=== PATIENT | male | born 1990 | race Two or more races ===

== ENCOUNTER 2018-12-29 12:21 | Inpatient (IN) | payer MEDICAID ==
[~2018-12-29] VITALS: Ht 182.9 cm; Wt 97.1 kg
[2018-12-29] VITALS (11 sets, daily range): BP systolic 118–153; BP diastolic 69–82
[2018-12-29] MEDS ORDERED: NKM (12:44)
[2018-12-29] MEDS ORDERED: Pantoprazole Inj IV ONE (13:00)
[2018-12-29] MEDS ORDERED: Lidocaine 2% Visc 15ml soln ORAL ONE (13:00)
[2018-12-29] MEDS ORDERED: Mylanta II UD 30ml ORAL ONE (13:00)
[2018-12-29 13:20] LABS: APPEARANCE,URINE CLEAR; BILIRUBIN, URINE NEGATIVE (NEGATIVE); GLUCOSE, URINE (UA) NEGATIVE (NEGATIVE); KETONES,URINE 1+ (NEGATIVE); LEUKOCYTE ESTERASE ,URINE 1+ (NEGATIVE); NITRITE,URINE NEGATIVE (NEGATIVE); PH,URINE 5 (4.5-8.0); PROTEIN,URINE 1+ (NEGATIVE); UROBILINOGEN,URINE 1 MG/DL (0.0-1.0)
[2018-12-29 13:23] LABS: COLOR,URINE YELLOW
[2018-12-29 13:25] LABS: BASOPHILS % (AUTO) 1.3 % (0.0-2.0); EOSINOPHILS % (AUTO) 3.9 % (0.0-3.0); HEMATOCRIT 48.8 % (42.0-52.0); HEMOGLOBIN 16.1 G/DL (14.2-18.0); LYMPHOCYTES % (AUTO) 29.6 % (20.0-45.0); MEAN CORPUSCULAR VOLUME 88 FL (80-99); MONOCYTES % (AUTO) 5.3 % (1.0-10.0); NEUTROPHILS % (AUTO) 59.9 % (45.0-75.0); PLATELET COUNT 288 K/UL (150-450); RED BLOOD COUNT 5.55 M/UL (4.70-6.10); RED CELL DISTRIBUTION WIDTH 11.3 % (11.6-14.8); WHITE BLOOD COUNT 9.8 K/UL (4.8-10.8)
[2018-12-29 13:51] LABS: ANION GAP 9 mmol/L (5-15); BLOOD UREA NITROGEN 22 mg/dL (7-18); CALCIUM 9.9 MG/DL (8.5-10.1); CARBON DIOXIDE 29 MMOL/L (21-32); CHLORIDE 101 MMOL/L (98-107); CREATININE 1.2 MG/DL (0.55-1.30); SODIUM 139 MMOL/L (136-145)
[2018-12-29 13:57] LABS: ALANINE AMINOTRANSFERASE 34 U/L (12-78); ALBUMIN 4.3 G/DL (3.4-5.0); ALBUMIN/GLOBULIN RATIO 0.9 (1.0-2.7); ALKALINE PHOSPHATASE 121 U/L (46-116); ASPARTATE AMINO TRANSFERASE 16 U/L (15-37); BILIRUBIN,TOTAL 0.7 MG/DL (0.2-1.0)
--- NOTE | 2018-12-29 14:31 | Emergency Room Report ---
History of Present Illness General Chief Complaint: Gastrointestinal Bleed Source: Patient (Rachna Good DO) Present Illness HPI The patient states he has had 2 bouts of abdominal pain and diarrhea. He states several weeks ago he developed a diffuse crampy abdominal pain with diarrhea. He states that this resolved. However, a few days ago symptoms returned. He states he's had pain in his mid abdomen and diarrhea. He denies nausea or vomiting. He denies fever or chills. He has not had any travel or camping. He states that he did note that his stool was black. He admits he took Pepto-Bismol the previous 2 days. He denies dysuria or hematuria. He has no other complaints. (Rachna Good DO) Allergies: Coded Allergies: No Known Allergies (Unverified , 12/29/18) Patient History Past Medical History: none (Rachna Good DO) Nursing Documentation-[facility] Past Medical History: No Stated History (Rachna Good DO) Physical Exam Vital Signs Date Time Temp Pulse Resp B/P (MAP) Pulse Ox O2 Delivery O2 Flow Rate FiO2 12/29/18 12:40 99.0 71 16 131/85 97 Room Air 12/29/18 13:13 100 (Rachna Good DO) Medical Decision Making Diagnostic Impression: Primary Impression: Acute appendicitis Laboratory Tests Test 12/29/18 13:05 12/29/18 13:10 White Blood Count 9.8 K/UL (4.8-10.8) Red Blood Count 5.55 M/UL (4.70-6.10) Hemoglobin 16.1 G/DL (14.2-18.0) Hematocrit 48.8 % (42.0-52.0) Mean Corpuscular Volume 88 FL (80-99) Mean Corpuscular Hemoglobin 29.0 PG (27.0-31.0) Mean Corpuscular Hemoglobin Concent 33.0 G/DL (32.0-36.0) Red Cell Distribution Width 11.3 % (11.6-14.8) L Platelet Count 288 K/UL (150-450) Mean Platelet Volume 9.2 FL (6.5-10.1) Neutrophils (%) (Auto) 59.9 % (45.0-75.0) Lymphocytes (%) (Auto) 29.6 % (20.0-45.0) Monocytes (%) (Auto) 5.3 % (1.0-10.0) Eosinophils (%) (Auto) 3.9 % (0.0-3.0) H Basophils (%) (Auto) 1.3 % (0.0-2.0) Prothrombin Time 10.8 SEC (9.30-11.50) Prothrombin Time INR 1.0 (0.9-1.1) PTT 31 SEC (23-33) Sodium Level 139 MMOL/L (136-145) Potassium Level 4.0 MMOL/L (3.5-5.1) Chloride Level 101 MMOL/L (98-107) Carbon Dioxide Level 29 MMOL/L (21-32) Anion Gap 9 mmol/L (5-15) Blood Urea Nitrogen 22 mg/dL (7-18) H Creatinine 1.2 MG/DL (0.55-1.30) Estimate Glomerular Filtration Rate > 60 mL/min (>60) Glucose Level 108 MG/DL (74-106) H Calcium Level 9.9 MG/DL (8.5-10.1) Total Bilirubin 0.7 MG/DL (0.2-1.0) Aspartate Amino Transferase (AST) 16 U/L (15-37) Alanine Aminotransferase (ALT) 34 U/L (12-78) Alkaline Phosphatase 121 U/L (46-116) H Total Protein 8.9 G/DL (6.4-8.2) H Albumin 4.3 G/DL (3.4-5.0) Globulin 4.6 g/dL Albumin/Globulin Ratio 0.9 (1.0-2.7) L Lipase 110 U/L (73-393) Urine Color Yellow Urine Appearance Clear Urine pH 5 (4.5-8.0) Urine Specific [place] 1.025 (1.005-1.035) Urine Protein 1+ (NEGATIVE) H Urine Glucose (UA) Negative (NEGATIVE) Urine Ketones 1+ (NEGATIVE) H Urine Blood 1+ (NEGATIVE) H Urine Nitrite Negative (NEGATIVE) Urine Bilirubin Negative (NEGATIVE) Urine Urobilinogen 1 MG/DL (0.0-1.0) H Urine Leukocyte Esterase 1+ (NEGATIVE) H Urine RBC 2-4 /HPF (0 - 0) H Urine WBC 2-4 /HPF (0 - 0) Urine Squamous Epithelial Cells Occasional /LPF Urine Bacteria Occasional /HPF (NONE) Urine Opiates Screen Negative (NEGATIVE) Urine Barbiturates Screen Negative (NEGATIVE) Phencyclidine (PCP) Screen Negative (NEGATIVE) Urine Amphetamines Screen Negative (NEGATIVE) Urine Benzodiazepines Screen Negative (NEGATIVE) Urine Cocaine Screen Negative (NEGATIVE) Urine Marijuana (THC) Screen Positive (NEGATIVE) H (Rachna Good DO) ER Course Please refer to the initial note including the presentation and history Patient is a fairly complex patient with multiple differential to consideration including but not limited to cardiac cardiopulmonary and vascular emergencies CT imaging was obtained and at this time speaking to radiology They find findings concerning and consistent with early appendicitis Patient Nothing by mouth requires further inpatient care Gen. surgery being contacted Labs Test 12/29/18 13:05 12/29/18 13:10 White Blood Count 9.8 K/UL (4.8-10.8) Red Blood Count 5.55 M/UL (4.70-6.10) Hemoglobin 16.1 G/DL (14.2-18.0) Hematocrit 48.8 % (42.0-52.0) Mean Corpuscular Volume 88 FL (80-99) Mean Corpuscular Hemoglobin 29.0 PG (27.0-31.0) Mean Corpuscular Hemoglobin Concent 33.0 G/DL (32.0-36.0) Red Cell Distribution Width 11.3 % (11.6-14.8) Platelet Count 288 K/UL (150-450) Mean Platelet Volume 9.2 FL (6.5-10.1) Neutrophils (%) (Auto) 59.9 % (45.0-75.0) Lymphocytes (%) (Auto) 29.6 % (20.0-45.0) Monocytes (%) (Auto) 5.3 % (1.0-10.0) Eosinophils (%) (Auto) 3.9 % (0.0-3.0) Basophils (%) (Auto) 1.3 % (0.0-2.0) Prothrombin Time 10.8 SEC (9.30-11.50) Prothromb Time International Ratio 1.0 (0.9-1.1) Activated Partial Thromboplast Time 31 SEC (23-33) Sodium Level 139 MMOL/L (136-145) Potassium Level 4.0 MMOL/L (3.5-5.1) Chloride Level 101 MMOL/L (98-107) Carbon Dioxide Level 29 MMOL/L (21-32) Anion Gap 9 mmol/L (5-15) Blood Urea Nitrogen 22 mg/dL (7-18) Creatinine 1.2 MG/DL (0.55-1.30) Estimat Glomerular Filtration Rate > 60 mL/min (>60) Glucose Level 108 MG/DL (74-106) Calcium Level 9.9 MG/DL (8.5-10.1) Total Bilirubin 0.7 MG/DL (0.2-1.0) Aspartate Amino Transf (AST/SGOT) 16 U/L (15-37) Alanine Aminotransferase (ALT/SGPT) 34 U/L (12-78) Alkaline Phosphatase 121 U/L (46-116) Total Protein 8.9 G/DL (6.4-8.2) Albumin 4.3 G/DL (3.4-5.0) Globulin 4.6 g/dL Albumin/Globulin Ratio 0.9 (1.0-2.7) Lipase 110 U/L (73-393) Urine Color Yellow Urine Appearance Clear Urine pH 5 (4.5-8.0) Urine Specific [place] 1.025 (1.005-1.035) Urine Protein 1+ (NEGATIVE) Urine Glucose (UA) Negative (NEGATIVE) Urine Ketones 1+ (NEGATIVE) Urine Blood 1+ (NEGATIVE) Urine Nitrite Negative (NEGATIVE) Urine Bilirubin Negative (NEGATIVE) Urine Urobilinogen 1 MG/DL (0.0-1.0) Urine Leukocyte Esterase 1+ (NEGATIVE) Urine RBC 2-4 /HPF (0 - 0) Urine WBC 2-4 /HPF (0 - 0) Urine Squamous Epithelial Cells Occasional /LPF Urine Bacteria Occasional /HPF (NONE) Urine Opiates Screen Negative (NEGATIVE) Urine Barbiturates Screen Negative (NEGATIVE) Phencyclidine (PCP) Screen Negative (NEGATIVE) Urine Amphetamines Screen Negative (NEGATIVE) Urine Benzodiazepines Screen Negative (NEGATIVE) Urine Cocaine Screen Negative (NEGATIVE) Urine Marijuana (THC) Screen Positive (NEGATIVE) (Bhupinder Villafana DO) CT/MRI/US Diagnostic Results CT/MRI/US Diagnostic Results : Imaging Test Ordered: CT abd/pelvis (Rachna Good DO) CT/MRI/US Diagnostic Results : Impression CT abdomen pelvisImpression: Findings are compatible with early uncomplicated acute appendicitis. Colonic diverticulosis Cholelithiasis (Bhupinder Villafana DO) Last Vital Signs Date Time Temp Pulse Resp B/P (MAP) Pulse Ox O2 Delivery O2 Flow Rate FiO2 12/29/18 13:13 98.7 70 21 136/76 100 Room Air 12/29/18 13:13 100 (Rachna Good [place] CHRISTINE) Status: unchanged (Bhupinder Villafana DO) Disposition: ADMITTED INPATIENT Condition: Serious Scripts Tramadol Hcl* (ULTRAM*) 50 Mg Tablet 50 MG ORAL Q6H PRN for For Pain, #20 TAB 0 [facility] Metronidazole* (FLAGYL*) 500 Mg Tablet 500 MG ORAL THREE TIMES A DAY, #21 TAB 0 Refills Prov: [facility] 12/29/18 Ciprofloxacin Hcl* (CIPROFLOXACIN HCL*) 500 Mg Tablet 500 MG ORAL Q12H, #14 TAB 0 [facility] 12/29[facility]18 Referrals: [facility],REFERRING (PCP) Rachna Good [place] Dec 29, 2018 14:31 Bhupinder Villafana DO Dec 29, 2018 16:58
[2018-12-29] MEDS ORDERED: Isovue-300 100ml vial INJ PRN (14:45)
[2018-12-29] MEDS ORDERED: TRAMADOL HCL50 MG ORAL (15:19)
[2018-12-29] MEDS ORDERED: CIPROFLOXACIN500 M2 ORAL (15:19)
[2018-12-29] MEDS ORDERED: METRONIDAZOLE500 MG ORAL (15:19)
--- NOTE | 2018-12-29 16:23 | Diagnostic Imaging Report ---
Clinical Indication: Abdominal pain for one week Technique: No oral contrast utilized, per emergency room physician request IV administration nonionic contrast. Venous phase spiral acquisition obtained through the abdomen and pelvis. Multiplanar reconstructions were generated. Total dose length product 907.29 mGycm. CTDIvol(s) 17.25 mGy. Dose reduction achieved using automated exposure control Comparison: none Findings: There is fairly extensive sigmoid diverticulosis. No definite evidence of diverticulitis. The appendix appears thickened, measuring up to 10 mm thick, and there is very slight infiltration of the periappendiceal fat. No extraluminal gas or fluid is demonstrated. Prominent pericecal nodes are demonstrated. No small bowel distention. No free or loculated intraperitoneal gas or fluid is evident. The distal esophagus, stomach, duodenum are unremarkable. The gallbladder contains small gallstones. No biliary ductal dilatation. The liver, pancreas, spleen, adrenals, kidneys are all unremarkable. No retroperitoneal or mesenteric mass or adenopathy. No pelvic mass or adenopathy. The included lung bases demonstrate posterior dependent atelectatic changes. The bones are unremarkable. Impression: Findings are compatible with early uncomplicated acute appendicitis. Colonic diverticulosis Cholelithiasis Findings discussed by phone with Dr. Villafana or in the emergency room at the time of interpretation The CT scanner at [facility] is accredited by the [employer] and the scans are performed using protocols designed to limit radiation exposure to as low as reasonably achievable to attain images of sufficient resolution adequate for diagnostic evaluation.
[2018-12-29] MEDS ORDERED: UNOBMED (17:23)
--- NOTE | 2018-12-29 18:42 | Pre-Procedure Note/Attestation ---
Pre-Procedure Note/Attestation Complete Prior to Procedure Planned Procedure: not applicable Procedure Narrative: Laparoscopic Appendectomy possible open appendectomy Indications for Procedure Pre-Operative Diagnosis: Acute appendicitis Attestation I attest that I discussed the nature of the procedure; its benefits; risks and complications; and alternatives (and the risks and benefits of such alternatives ), prior to the procedure, with the patient (or the patient's legal sales representative advertising). I attest that, if there was a reasonable possibility of needing a blood transfusion, the patient (or the patient's legal sales representative advertising) was given the [facility] standardized written summary, pursuant to the Flavio Jc Blood Safety Act ([place] Health and Safety Code # 1645, as amended). I attest that I re-evaluated the patient just prior to the surgery and that there has been no change in the patient's H&P, except as documented below: Caitlin Russell MD Dec 29, 2018 18:42
[2018-12-29] MEDS ORDERED: NS Irrig 1000ml ONE (19:00)
[2018-12-29] MEDS ORDERED: Sterile Water Irrig 1000ml IRRIG ONE (19:00)
[2018-12-29] MEDS ORDERED: LR 1000ml ONE (19:00)
[2018-12-29] MEDS ORDERED: NeoSporin Gu Irrig 1ml Amp IRRIG ONE (19:09)
[2018-12-29] MEDS ORDERED: Bacitracin 50000 Units Vial ONE (19:09)
[2018-12-29] MEDS ORDERED: Bupivacaine 0.25% Inj 30ml INJ ONE (19:09)
[2018-12-29] MEDS ORDERED: fentaNYL 100 mcg/2 mL IV ONE (19:14)
[2018-12-29] MEDS ORDERED: Lidocaine 1% MPF 10mg/ml 5ml ONE (19:15)
[2018-12-29] MEDS ORDERED: Midazolam 2mg/2ml Inj ONE (19:15)
[2018-12-29] MEDS ORDERED: Propofol 200mg/20ml IV ONE (19:15)
[2018-12-29] MEDS ORDERED: Succinylcholine 20mg/ml 10ml vial ONE (19:21)
[2018-12-29] MEDS ORDERED: Zemuron 50mg/5ml Inj IV ONE (19:21)
[2018-12-29] MEDS ORDERED: Piperacillin/Tazobactam 3.375 GM in NS 110 ML IVPB SCH (19:30)
--- NOTE | 2018-12-29 20:00 | Consultation ---
DATE OF CONSULTATION: 12/29/2018 PREOPERATIVE CONSULTATION CONSULTING PHYSICIAN: Caitlin Russell M.D. REQUESTING PHYSICIAN: Dr. Villafana at emergency room. REASON FOR CONSULTATION: Abdominal pain. HISTORY OF PRESENT ILLNESS: This is a 28-year-old male, who presented to emergency room complaining of low abdominal pain since earlier today morning. The pain initially was periumbilical and lower abdomen and then it has localized mainly in the suprapubic, maybe more towards the right side. He stated that he has vomited once and had a normal bowel movement today. He denies fever, cough, dysuria, or frequency. He stated that a week ago, had a similar episode which lasted for 2 to 3 days and then it resolved. PAST MEDICAL HISTORY: He denies allergies, asthma, diabetes, hypertension, and cardiac and renal diseases. SURGERIES: None. MEDICATIONS: None. SOCIAL HISTORY: The patient is a 28-year-old male, who is single without any children. 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 REVIEW OF SYSTEMS: Noncontributory. PHYSICAL EXAMINATION: GENERAL: The patient appeared to be a well-developed and well-nourished 28-year-old male, lying on the bed, complaining of abdominal pain. HEENT: Head is normocephalic and atraumatic. Eyes, pupils are equal, round, and reactive to light. Mouth is clear. NECK: There is no palpable thyromegaly or adenopathy. CHEST: Clear to auscultation and percussion. HEART: There is no gallop or murmur. S1 and S2 are within normal limits. ABDOMEN: Soft and flat with mild tenderness at right lower quadrant. The bowel sounds are present. There is no palpable organomegaly. GENITAL: Normal. EXTREMITIES: Within normal limits. LABORATORY DATA: CBC has shown a WBC of 9800 with normal differential. Chemistry and UA is normal, but the CAT scan of the abdomen has been interpreted as early acute appendicitis. ASSESSMENT: Acute appendicitis. PLAN: After rehydration, the patient will undergo exploratory laparoscopy and appendectomy, possible open appendectomy. The risks and benefits have been explained to him. He understood and granted consent. Caitlin Russell M.D. DR: LAZARO JOB#: [id number] CC:
[2018-12-29] MEDS ORDERED: NS Irrig 1000ml IRRIG ONE (20:06)
[2018-12-29] MEDS ORDERED: LR 1000ml 1,000 ML IVLG SCH (20:07)
--- NOTE | 2018-12-29 20:07 | Anethesia Preoperative Eval ---
Anesthesia Pre-op PMH/ROS General Date of Evaluation: Dec 29, 2018 Time of Evaluation: 19:10 Anesthesiologist: Bar ASA Score: ASA 2 Mallampati Score Class I : Soft palate, uvula, fauces, pillars visible Class II: Soft palate, uvula, fauces visible Class III: Soft palate, base of uvula visible Class IV: Only hard plate visible Mallampati Classification: Class II Surgeon: Yvonne Diagnosis: Acute appendicitis Surgical Procedure: Laparoscopic appendefctomy Anesthesia History: none Family History: no anesthesia problems Allergies: Coded Allergies: No Known Allergies (Unverified , 12/29/18) Medications: see eMAR Patient NPO?: Yes NPO Date: Dec 29, 2018 NPO Time: 1819 Past Medical History Cardiovascular: Denies: HTN, CAD, [place], valve dz, arrhythmia, other Pulmonary: Denies: asthma, COPD, DIPTI, other Gastrointestinal/Genitourinary: Reports: GERD - mild; Denies: CRI, ESRD, other Neurologic/Psychiatric: Denies: dementia, CVA, depression/anxiety, TIA, other Endocrine: Denies: DM, hypothyroidism, steroids, other HEENT: Denies: cataract (L), cataract (R), glaucoma, [place] (L), [place] (R), other Hematology/Immune: Denies: anemia, DVT, bleeding disorder, other Musculoskeletal/Integumentary: Denies: OA, RA, DJD, DDD, edema, other Other: other - overweight PMH Narrative: as above admitted for acute abdominal pain PSxH Narrative: None Anesthesia Pre-op Phys. Exam Physician Exam Last Vital Signs Date Time Temp Pulse Resp B/P (MAP) Pulse Ox O2 Delivery O2 Flow Rate FiO2 12/29/18 19:05 Room Air 12/29/18 18:20 97.7 63 20 151/79 (103) 96 12/29/18 18:11 100 Constitutional: NAD Neurologic: CN 2-12 intact Cardiovascular: RRR, no M/R/G Respiratory: CTA Gastrointestinal: other - tender on palpation Airway Exam Mallampati Score: Class II MO: full Neck: flexible ROM: full Teeth: intact Dentures: no upper, no lower Anesthesia Pre-op A/P Labs Hematology Test 12/29/18 13:05 White Blood Count 9.8 K/UL (4.8-10.8) Red Blood Count 5.55 M/UL (4.70-6.10) Hemoglobin 16.1 G/DL (14.2-18.0) Hematocrit 48.8 % (42.0-52.0) Mean Corpuscular Volume 88 FL (80-99) Mean Corpuscular Hemoglobin 29.0 PG (27.0-31.0) Mean Corpuscular Hemoglobin Concent 33.0 G/DL (32.0-36.0) Red Cell Distribution Width 11.3 % (11.6-14.8) L Platelet Count 288 K/UL (150-450) Mean Platelet Volume 9.2 FL (6.5-10.1) Neutrophils (%) (Auto) 59.9 % (45.0-75.0) Lymphocytes (%) (Auto) 29.6 % (20.0-45.0) Monocytes (%) (Auto) 5.3 % (1.0-10.0) Eosinophils (%) (Auto) 3.9 % (0.0-3.0) H Basophils (%) (Auto) 1.3 % (0.0-2.0) Coagulation Test 12/29/18 13:05 Prothrombin Time 10.8 SEC (9.30-11.50) Prothromb Time International Ratio 1.0 (0.9-1.1) Activated Partial Thromboplast Time 31 SEC (23-33) Chemistry Test 12/29/18 13:05 Sodium Level 139 MMOL/L (136-145) Potassium Level 4.0 MMOL/L (3.5-5.1) Chloride Level 101 MMOL/L (98-107) Carbon Dioxide Level 29 MMOL/L (21-32) Anion Gap 9 mmol/L (5-15) Blood Urea Nitrogen 22 mg/dL (7-18) H Creatinine 1.2 MG/DL (0.55-1.30) Estimat Glomerular Filtration Rate > 60 mL/min (>60) Glucose Level 108 MG/DL (74-106) H Calcium Level 9.9 MG/DL (8.5-10.1) Total Bilirubin 0.7 MG/DL (0.2-1.0) Aspartate Amino Transf (AST/SGOT) 16 U/L (15-37) Alanine Aminotransferase (ALT/SGPT) 34 U/L (12-78) Alkaline Phosphatase 121 U/L (46-116) H Total Protein 8.9 G/DL (6.4-8.2) H Albumin 4.3 G/DL (3.4-5.0) Globulin 4.6 g/dL Albumin/Globulin Ratio 0.9 (1.0-2.7) L Lipase 110 U/L (73-393) Risk Assessment & Plan Assessment: ASA 2E Plan: GA with ETT Status Change Before Surgery: No Pre-Antibiotics Drug: Zosin 3.375 Given Within 1 Hr of Incision: Yes Time Given: 20:10 Rafa Dinero MD Dec 29, 2018 20:06
[2018-12-29] MEDS ORDERED: Meperidine 50mg/ml Inj(FOR RIGORS ONLY) IV PRN (20:15)
[2018-12-29] MEDS ORDERED: DiphenhydrAMINE 50mg/ml Inj IVP PRN (20:15)
[2018-12-29] MEDS ORDERED: Ketorolac 30mg Inj IV PRN (20:15)
[2018-12-29] MEDS ORDERED: Metoclopramide 10mg/2ml Inj IVP PRN ×2 (20:15→20:30)
[2018-12-29] MEDS ORDERED: Glycopyrrolate 0.2mg/ml 1ml Vial ONE (20:18)
[2018-12-29] MEDS ORDERED: Hydromorphone 0.5mg/0.5ml inj IVP PRN (20:30)
[2018-12-29] MEDS ORDERED: Acetaminophen 650 MG SUPP RECTAL PRN (20:30)
--- NOTE | 2018-12-29 20:30 | Brief Operative Note ---
Immediate Post Operative Note Operative Note Pre-op Diagnosis: Acute appendicitis Post-op Diagnosis: same as pre-op Findings: consistent w/pre-op dx studies Surgeon: Luis A Utilities Service Investigator: none Anesthesiologist: Dr. Dinero Anesthesia: general Specimen: yes Complications: none Condition: stable Fluids: per anesthesiologist Estimated Blood Loss: minimal Drains: none Implant(s) used?: No Caitlin Russell MD Dec 29, 2018 20:30
--- NOTE | 2018-12-29 20:47 | Immediate Post-Op Evaluation ---
Immediate Post-Op Evalulation Immediate Post-Op Evalulation Procedure: Laparoscopic appendectomy Date of Evaluation: Dec 29, 2018 Time of Evaluation: 20:46 IV Fluids: 600 Blood Products: none Estimated Blood Loss: min Urinary Output: none Blood Pressure Systolic: 123 Blood Pressure Diastolic: 76 Pulse Rate: 64 Respiratory Rate: 20 O2 Sat by Pulse Oximetry: 98 Temperature (Fahrenheit): 97.6 Pain Score (1-10): 1 Nausea: No Vomiting: No Complications none Patient Status: reacts, patent, extubated, none Hydration Status: adequate Rafa Dinero MD Dec 29, 2018 20:47
[2018-12-29] MEDS: D5 1/2NS w/KCl 20mEq 1,000 ML IV SCH (22:14)
--- NOTE | 2018-12-29 22:30 | Operative Note - Dictated ---
DATE OF OPERATION: 12/29/2018 PREOPERATIVE DIAGNOSIS: Acute appendicitis. POSTOPERATIVE DIAGNOSIS: Acute appendicitis. OPERATION: Laparoscopic appendectomy. COMPLICATIONS: None. SURGEON: Caitlin Russell M.D. MILK AND CREAM GRADER: None. ANESTHESIA: General with endotracheal tube. ANESTHESIOLOGIST: Rafa Dinero M.D. INDICATION: This is a 28-year-old male, who presented to emergency room complaining of abdominal pain since yesterday morning. The pain was initially in the lower abdomen and then it localized at the suprapubic area. It was associated with nausea and vomiting. Physical examination showed mild tenderness at right lower quadrant. CBC, UA, and chemistry was normal. CAT scan of the abdomen was interpreted as early acute appendicitis. DESCRIPTION OF PROCEDURE: The patient was placed supine on the operating table and after general anesthesia with endotracheal tube, the abdomen was properly prepped and draped. Initially, a small incision was made above the umbilicus through which a Veress needle was introduced into the intraperitoneal cavity. This cavity was insufflated up to 15 mmHg and then the Veress needle was removed and a 5 mm trocar was placed in the intraperitoneal cavity through the incision above the umbilicus. The laparoscope and camera was introduced into the intraperitoneal cavity through the trocar above the umbilicus and under direct vision, a 5 mm trocar was placed at the suprapubic area and a 12 mm trocar was placed at the left lower quadrant of the abdomen. Initially, a rapid exploration was performed, which showed the diaphragms to be normal. The part of the stomach that could be seen was normal. The liver was normal. Gallbladder was covered with omentum and the bowels were covered with fatty omentum. Exploration of the right lower quadrant cavity was performed. The cecum was identified and further exploration was performed and finally the appendix was identified, which was severely inflamed and distended especially at the distal half. The appendix was retroperitoneal. Gradually the appendix was dissected and mesoappendix was exposed. The mesoappendix was ligated and transected with a SRINI stapler and then the appendix was ligated and transected at the base with another SRINI stapler. The appendix was removed from the intraperitoneal cavity through the incision at the left lower quadrant of the abdomen with the help of the Endo pouch. After removal of the appendix, the right lower quadrant cavity and pelvis and right paracolic gutter was copiously irrigated with antibiotic solution. Another exploration was performed. There was no bleeding or complication. The trocars were removed under direct vision. The incisions were infiltrated with total of 30 mL of Marcaine 0.25% and the incision and the fascia at the left lower quadrant was approximated with a [id number] suture of #0 Vicryl. The subcutaneous tissue was approximated with 4-0 chromic and the skin incisions were approximated with running subcuticular suture of 4-0 chromic. The patient tolerated the procedure very well and was transferred to recovery room in stable condition and extubated. The sponge and needle count correct. Estimated blood loss 5 mL. Condition of the patient at the end of procedure is stable. Caitlin Russell M.D. DR: Jorge JOB#: [id number] CC:
[2018-12-29] MEDS: Pantoprazole Inj IVP SCH (22:37)
[2018-12-30] VITALS (8 sets, daily range): BP systolic 106–130; BP diastolic 60–77
[2018-12-30] MEDS: HYDROmorphone 1mg/ml Carpuject IVP PRN ×2 (00:24→06:01)
[2018-12-30] MEDS: Piperacillin/Tazobactam 3.375 GM in NS 110 ML IVPB SCH ×3 (06:01→21:48)
[2018-12-30 06:20] LABS: BASOPHILS % (AUTO) 0.8 % (0.0-2.0); EOSINOPHILS % (AUTO) 1.4 % (0.0-3.0); HEMATOCRIT 40.6 % (42.0-52.0); HEMOGLOBIN 13.5 G/DL (14.2-18.0); MEAN CORPUSCULAR VOLUME 89 FL (80-99); NEUTROPHILS % (AUTO) 68.8 % (45.0-75.0); PLATELET COUNT 267 K/UL (150-450); RED BLOOD COUNT 4.56 M/UL (4.70-6.10); RED CELL DISTRIBUTION WIDTH 11.6 % (11.6-14.8); WHITE BLOOD COUNT 10.6 K/UL (4.8-10.8)
[2018-12-30 06:33] LABS: ANION GAP 9 mmol/L (5-15); BLOOD UREA NITROGEN 16 mg/dL (7-18); CARBON DIOXIDE 28 MMOL/L (21-32); CHLORIDE 103 MMOL/L (98-107); CREATININE 1.3 MG/DL (0.55-1.30); POTASSIUM 4.3 MMOL/L (3.5-5.1); SODIUM 140 MMOL/L (136-145)
[2018-12-30] MEDS: Pantoprazole Inj IVP SCH (08:45)
[2018-12-30] MEDS: D5 1/2NS w/KCl 20mEq 1,000 ML IV SCH ×2 (08:46→17:32)
--- NOTE | 2018-12-30 08:48 | 48 Hour Post Anesthesia Eval ---
Post Anesthesia Evaluation Procedure: Laparoscopic appendectomy Date of Evaluation: Dec 30, 2018 Time of Evaluation: 06:40 Blood Pressure Systolic: 114 0: 60 Pulse Rate: 65 Respiratory Rate: 18 Temperature (Fahrenheit): 97.2 O2 Sat by Pulse Oximetry: 98 Airway: patent Nausea: No Vomiting: No Pain Intensity: 2 Hydration Status: adequate Cardiopulmonary Status: Stable Mental Status/LOC: patient returned to baseline Follow-up Care/Observations: 0 Post-Anesthesia Complications: 0 Follow-up care needed: N/A Kal Martin MD Dec 30, 2018 08:48
--- NOTE | 2018-12-30 10:42 | GI Initial Consult Note ---
History of Present Illness General Date patient seen: Dec 30, 2018 Time patient seen: 10:37 Reason for Hospitalization: Gastrointestinal Bleed Referring physician: MELBA GOLDSTEIN Reason for Consultation: abdominal pain Present Illness HPI The patient states he has had 2 bouts of abdominal pain and diarrhea. He states several weeks ago he developed a diffuse crampy abdominal pain with diarrhea. He states that this resolved. However, a few days ago symptoms returned. He states he's had pain in his mid abdomen and diarrhea. He denies nausea or vomiting. He denies fever or chills. He has not had any travel or camping. He states that he did note that his stool was black. He admits he took Pepto-Bismol the previous 2 days. He denies dysuria or hematuria. He has no other complaints. GI consulted for abdominal pain. Patient seen, awake alert and oriented x4 no apparent distress now status post laparoscopic appendectomy has complaint of abdominal surgical pain and fatigue at this time. Patient denies any known medical history. Has no history of endoscopy or colonoscopy. Patient reported black stools prior to admissions. Labs reviewed; hemoglobin is 13.5, alkaline phosphatase 121, positive urine toxicity for marijuana. Home Meds Active Scripts Tramadol Hcl* (ULTRAM*) 50 Mg Tablet, 50 MG ORAL Q6H PRN for For Pain, #20 TAB 0 [facility] 12/29/18 Metronidazole* (FLAGYL*) 500 Mg Tablet, 500 MG ORAL THREE TIMES A DAY, #21 TAB 0 [facility] 12/29/18 Ciprofloxacin Hcl* (CIPROFLOXACIN HCL*) 500 Mg Tablet, 500 MG ORAL Q12H, #14 TAB 0 [facility] 12/29/18 Reported Medications Unable to Obtain Medications (UNABLE TO OBTAIN MEDS) 1 Ea Ea 12/29/18 No Known Medications* (NKM - No Known Medications*) ., 0 ., 0 Refills 12/29/18 Med list reviewed/reconciled: Yes Allergies: Coded Allergies: No Known Allergies (Unverified , 12/29/18) Patient History Past Surgical History: none Pertinent Family History: none Social History: Reports: drug use Review of Systems All Other Systems: negative except mentioned in HPI Physical Exam Vital Signs Date Time Temp Pulse Resp B/P (MAP) Pulse Ox O2 Delivery O2 Flow Rate FiO2 12/29/18 12:40 99.0 71 16 131/85 97 Room Air 12/29/18 13:13 100 12/29/18 20:45 6 Sp02 EP Interpretation: reviewed, normal Labs Laboratory Tests Test 12/29/18 13:05 12/29/18 13:10 12/30/18 05:53 White Blood Count 9.8 K/UL (4.8-10.8) 10.6 K/UL (4.8-10.8) Red Blood Count 5.55 M/UL (4.70-6.10) 4.56 M/UL (4.70-6.10) L Hemoglobin 16.1 G/DL (14.2-18.0) 13.5 G/DL (14.2-18.0) L Hematocrit 48.8 % (42.0-52.0) 40.6 % (42.0-52.0) L Mean Corpuscular Volume 88 FL (80-99) 89 FL (80-99) Mean Corpuscular Hemoglobin 29.0 PG (27.0-31.0) 29.5 PG (27.0-31.0) Mean Corpuscular Hemoglobin Concent 33.0 G/DL (32.0-36.0) 33.1 G/DL (32.0-36.0) Red Cell Distribution Width 11.3 % (11.6-14.8) L 11.6 % (11.6-14.8) Platelet Count 288 K/UL (150-450) 267 K/UL (150-450) Mean Platelet Volume 9.2 FL (6.5-10.1) 9.2 FL (6.5-10.1) Neutrophils (%) (Auto) 59.9 % (45.0-75.0) 68.8 % (45.0-75.0) Lymphocytes (%) (Auto) 29.6 % (20.0-45.0) 22.0 % (20.0-45.0) Monocytes (%) (Auto) 5.3 % (1.0-10.0) 7.0 % (1.0-10.0) Eosinophils (%) (Auto) 3.9 % (0.0-3.0) H 1.4 % (0.0-3.0) Basophils (%) (Auto) 1.3 % (0.0-2.0) 0.8 % (0.0-2.0) Prothrombin Time 10.8 SEC (9.30-11.50) Prothromb Time International Ratio 1.0 (0.9-1.1) Activated Partial Thromboplast Time 31 SEC (23-33) Sodium Level 139 MMOL/L (136-145) 140 MMOL/L (136-145) Potassium Level 4.0 MMOL/L (3.5-5.1) 4.3 MMOL/L (3.5-5.1) Chloride Level 101 MMOL/L (98-107) 103 MMOL/L (98-107) Carbon Dioxide Level 29 MMOL/L (21-32) 28 MMOL/L (21-32) Anion Gap 9 mmol/L (5-15) 9 mmol/L (5-15) Blood Urea Nitrogen 22 mg/dL (7-18) H 16 mg/dL (7-18) Creatinine 1.2 MG/DL (0.55-1.30) 1.3 MG/DL (0.55-1.30) Estimat Glomerular Filtration Rate > 60 mL/min (>60) > 60 mL/min (>60) Glucose Level 108 MG/DL (74-106) H 112 MG/DL (74-106) H Calcium Level 9.9 MG/DL (8.5-10.1) 9.0 MG/DL (8.5-10.1) Total Bilirubin 0.7 MG/DL (0.2-1.0) Aspartate Amino Transf (AST/SGOT) 16 U/L (15-37) Alanine Aminotransferase (ALT/SGPT) 34 U/L (12-78) Alkaline Phosphatase 121 U/L (46-116) H Total Protein 8.9 G/DL (6.4-8.2) H Albumin 4.3 G/DL (3.4-5.0) Globulin 4.6 g/dL Albumin/Globulin Ratio 0.9 (1.0-2.7) L Lipase 110 U/L (73-393) Urine Color Yellow Urine Appearance Clear Urine pH 5 (4.5-8.0) Urine Specific [place] 1.025 (1.005-1.035) Urine Protein 1+ (NEGATIVE) H Urine Glucose (UA) Negative (NEGATIVE) Urine Ketones 1+ (NEGATIVE) H Urine Blood 1+ (NEGATIVE) H Urine Nitrite Negative (NEGATIVE) Urine Bilirubin Negative (NEGATIVE) Urine Urobilinogen 1 MG/DL (0.0-1.0) H Urine Leukocyte Esterase 1+ (NEGATIVE) H Urine RBC 2-4 /HPF (0 - 0) H Urine WBC 2-4 /HPF (0 - 0) Urine Squamous Epithelial Cells Occasional /LPF Urine Bacteria Occasional /HPF (NONE) Urine Opiates Screen Negative (NEGATIVE) Urine Barbiturates Screen Negative (NEGATIVE) Phencyclidine (PCP) Screen Negative (NEGATIVE) Urine Amphetamines Screen Negative (NEGATIVE) Urine Benzodiazepines Screen Negative (NEGATIVE) Urine Cocaine Screen Negative (NEGATIVE) Urine Marijuana (THC) Screen Positive (NEGATIVE) H General Appearance: well appearing, no apparent distress, alert Head: normocephalic EENT: PERRL/EOMI, normal ENT inspection Neck: supple Respiratory: normal breath sounds, no respiratory distress Cardiovascular: normal rate Gastrointestinal: normal inspection, non tender, soft, normal bowel sounds, non -distended, other - Surgical incision sites Rectal: deferred Genitourinary: deferred Musculoskeletal: normal inspection, back normal Neurologic: normal inspection, alert, oriented x3, responsive Psychiatric: normal inspection, judgement/insight normal, memory normal Skin: normal inspection, normal color, no rash, warm/dry, palpation normal, well hydrated Lymphatic: normal inspection, no adenopathy Current Medications Current Medications Medications (Trade) Dose Ordered Sig/Stephany Route PRN Reason Start Time Stop Time Status Last Admin Dose Admin Acetaminophen (Tylenol) 650 mg Q4H PRN RECTAL FEVER 12/29/18 20:30 01/28/19 20:29 Dextrose/ Electrolytes 1,000 ml @ 100 mls/hr Q10H IV 12/29/18 22:00 01/28/19 21:59 12/30/18 08:46 Hydromorphone HCl (Dilaudid) 0.5 mg Q3H PRN IVP Pain Score 1-3 12/29/18 20:30 01/05/19 20:29 Hydromorphone HCl (Dilaudid) 1 mg Q3H PRN IVP pain score 4-6 12/29/18 20:30 4/23/19 20:29 12/30/18 06:01 Iopamidol (Isovue-300 100ml) 100 ml NOW PRN INJ Radiology Procedure 12/29/18 14:45 Metoclopramide HCl (Reglan) 10 mg Q6H PRN IVP Nausea & Vomiting 12/29/18 20:30 01/28/19 20:29 Ondansetron HCl (Zofran) 4 mg Q6H PRN IVP Nausea & Vomiting 12/29/18 20:30 01/28/19 20:29 Pantoprazole (Protonix) 40 mg DAILY IVP 12/29/18 22:00 01/28/19 21:59 12/30/18 08:45 Piperacillin Sod/ Tazobactam Sod 3.375 gm/Sodium Chloride 110 ml @ 27.5 mls/hr EVERY 8 HOURS IVPB 12/30/18 06:00 01/06/19 05:59 12/30/18 06:01 GI: Plan Problems: (1) Acute appendicitis Plan Status post laparoscopic appendectomy Symptomatic treatment at this time Follow-up surgical recommendations Diet per surgery Pain management Zofran as needed, Reglan for persistent vomiting PPI Follow labs Discussed with Dr. Arndt. Thank you for this patient referral, we will follow. The patient was seen and examined at bedside and all new and available data was reviewed in the patients chart. I agree with the above findings, impression and plan. (Patient seen earlier today. Signature stamp does not reflect patient encounter time.). - MD Krista Hutson,[facility] BL[employer] DEALER Dec 30, 2018 10:42
[2018-12-30] MEDS ORDERED: CIPRO250 MG ORAL (15:41)
[2018-12-30] MEDS ORDERED: ULTRAM50 MG ORAL (15:42)
[2018-12-30] MEDS ORDERED: SENNA-DOCUSATE1 EACH PO (15:43)
--- NOTE | 2018-12-30 15:52 | General Surgery Progress Note ---
General Surgery-Progress Note Subjective Symptoms: improved, passing flatus Objective Last 24 Hour Vital Signs Date Time Temp Pulse Resp B/P (MAP) Pulse Ox O2 Delivery O2 Flow Rate FiO2 12/30/18 12:00 98.5 70 20 124/72 (89) 97 12/30/18 08:48 65 18 98 12/30/18 08:10 Room Air 12/30/18 08:00 97.9 63 20 126/69 (88) 96 12/30/18 06:31 97.2 12/30/18 04:00 97.2 65 18 114/60 (78) 98 65 12/30/18 01:00 98.4 77 18 130/77 (94) 98 77 12/30/18 00:00 97.7 72 18 106/69 (81) 99 72 12/29/18 22:12 98.0 70 20 133/77 (95) 97 70 12/29/18 22:00 Nasal Cannula 2.0 12/29/18 21:38 97.8 12/29/18 21:38 97.8 12/29/18 21:35 97.8 60 14 118/71 100 Nasal Cannula 3 12/29/18 21:25 57 15 119/69 100 Nasal Cannula 3 12/29/18 21:08 55 14 129/75 100 Simple Mask 6 12/29/18 20:55 58 15 141/77 100 Simple Mask 6 12/29/18 20:50 60 16 138/74 100 Simple Mask 6 12/29/18 20:47 64 20 98 12/29/18 20:45 97.0 82 22 128/74 99 Simple Mask 6 12/29/18 19:05 Room Air 12/29/18 18:20 Room Air 12/29/18 18:20 97.7 63 20 151/79 (103) 96 12/29/18 18:20 Room Air 12/29/18 18:20 Room Air 12/29/18 18:11 98.3 66 18 135/84 100 Room Air 100 12/29/18 17:40 98.4 63 17 153/82 100 Room Air 100 I&O Intake and Output 12/29/18 12/30/18 19:00 07:00 Intake Total 1000 ml 1740 ml Output Total 370 ml Balance 1000 ml 1370 ml Intake Oral 240 ml IV Total 1000 ml 1500 ml Output Urine Total 350 ml Estimated Blood Loss 20 ml # Voids 3 Dressing: dry Respiratory: clear Abdomen: soft, flat, present bowel sounds Extremities: no tenderness Laboratory Tests Test 12/30/18 05:53 White Blood Count 10.6 K/UL (4.8-10.8) Red Blood Count 4.56 M/UL (4.70-6.10) L Hemoglobin 13.5 G/DL (14.2-18.0) L Hematocrit 40.6 % (42.0-52.0) L Mean Corpuscular Volume 89 FL (80-99) Mean Corpuscular Hemoglobin 29.5 PG (27.0-31.0) Mean Corpuscular Hemoglobin Concent 33.1 G/DL (32.0-36.0) Red Cell Distribution Width 11.6 % (11.6-14.8) Platelet Count 267 K/UL (150-450) Mean Platelet Volume 9.2 FL (6.5-10.1) Neutrophils (%) (Auto) 68.8 % (45.0-75.0) Lymphocytes (%) (Auto) 22.0 % (20.0-45.0) Monocytes (%) (Auto) 7.0 % (1.0-10.0) Eosinophils (%) (Auto) 1.4 % (0.0-3.0) Basophils (%) (Auto) 0.8 % (0.0-2.0) Sodium Level 140 MMOL/L (136-145) Potassium Level 4.3 MMOL/L (3.5-5.1) Chloride Level 103 MMOL/L (98-107) Carbon Dioxide Level 28 MMOL/L (21-32) Anion Gap 9 mmol/L (5-15) Blood Urea Nitrogen 16 mg/dL (7-18) Creatinine 1.3 MG/DL (0.55-1.30) Estimat Glomerular Filtration Rate > 60 mL/min (>60) Glucose Level 112 MG/DL (74-106) H Calcium Level 9.0 MG/DL (8.5-10.1) Assessment Additional Comments S/P lap appy Plan Additional Comments possible discharge in AM Caitlin Russell MD Dec 30, 2018 15:52
--- NOTE | 2018-12-30 16:15 | Consultation ---
DATE OF CONSULTATION: 12/30/2018 INFECTIOUS DISEASE CONSULTATION CONSULTING PHYSICIAN: Waylon Wise M.D. PRIMARY ATTENDING PHYSICIAN: Bhupinder Toledo M.D. REASON FOR CONSULT: Acute appendicitis. HISTORY OF PRESENT ILLNESS: A 28-year-old male admitted last evening complaining of abdominal pain. The patient also had diarrhea. The patient had first periumbilical pain that goes to lower belly and then to suprapubic area. Pain was more with bending. He had a similar episode of pain last week. He had pain two to three days before admission. A CT scan of the abdomen and pelvis showed early appendicitis and the patient had laparoscopic appendectomy. PAST MEDICAL HISTORY: Insignificant. ALLERGIES: No known drug allergies. MEDICATIONS: Getting Zosyn, Protonix, hydromorphone, and Zofran. SOCIAL HISTORY: The patient denies smoking, alcohol, or drug abuse. He is single. REVIEW OF SYSTEMS: Denies any fever, chills, nausea, or vomiting. Currently is on liquid diet. No abdominal pain. No problem in passing urine. PHYSICAL EXAMINATION: VITAL SIGNS: Temperature 97.2, pulse 65, and blood pressure 126/69. GENERAL APPEARANCE: No acute distress. HEAD AND NECK: [place] conjunctivae. HEART: Normal. LUNGS: Clear. ABDOMEN: Soft, flat, nontender. EXTREMITIES: No edema. NEUROLOGIC: Awake, alert, and oriented x3. LABORATORY DATA: Sodium 140, potassium 4.3, chloride 103, bicarbonate 28, BUN 16, and creatinine 1.3. Glucose 112. Urine toxicology was positive for marijuana. CT scan of the abdomen and pelvis showed an uncomplicated acute appendicitis, colonic diverticulosis, and cholelithiasis. IMPRESSION: Acute appendicitis, seems to be nonperforated, status post laparoscopic appendectomy. The patient also has cholelithiasis and colonic diverticulosis. RECOMMENDATION: We will continue with Zosyn perioperatively as suggested by surgeon. In case of recovery, he can go home soon without antibiotics. At the end of my exam, I thank Dr. Toledo for involving me in the care of this patient. Waylon Wise M.D. DR: TOMASA JOB#: [id number] CC: MIGUEL
[2018-12-30] MEDS: Docusate Sod/Senna tab ORAL SCH (17:31)
[2018-12-31] MEDS: D5 1/2NS w/KCl 20mEq 1,000 ML IV SCH ×2 (03:47→14:00)
[2018-12-31 04:01] VITALS: BP 119/60
[2018-12-31] MEDS: Piperacillin/Tazobactam 3.375 GM in NS 110 ML IVPB SCH (05:33)
--- NOTE | 2018-12-31 06:00 | History and Physical Report ---
DATE OF ADMISSION: 12/29/2018 HISTORY OF PRESENT ILLNESS: The patient is admitted for acute appendicitis. Dr. Russell, the surgeon, had appendectomy. The patient has abdominal pain for two days and . Denies nausea, vomiting, or diarrhea. No fever or chills. Denies shortness of breath. Denies cough. PAST MEDICAL HISTORY: None. PAST SURGICAL HISTORY: None. SOCIAL HISTORY: History of smoking. No history of alcohol or illicit drugs. MEDICATIONS: None. FAMILY HISTORY: Noncontributory. REVIEW OF SYSTEMS: HEENT: Denies headaches. RESPIRATORY: Denies shortness of breath. Denies cough. CARDIOVASCULAR: Denies chest pain. GASTROINTESTINAL: Denies nausea, vomiting, or diarrhea. EXTREMITIES: Denies pain. INFORMATION SYSTEMS SPECIALIST: No change in vision or speech pattern. Moves all four extremities. Sensory is intact to light touch. Reflexes equal on both sides. PHYSICAL EXAMINATION: ABDOMEN: Mild tenderness. No rebound. There is tenderness at the surgical site. EXTREMITIES: No edema. Reflexes equal on both sides. Moves all four extremities. LABORATORY DATA: Laboratory was essentially normal. ASSESSMENT AND PLAN: Appendicitis, status post appendectomy. Dr. Russell, Dr. Waylon Wise, and Dr. Arndt are on the case for appendicitis. Antibiotics per Dr. Waylon Wise. Bhupinder Toledo M.D. DR: MERCEDES JOB#: [id number] CC:
[2018-12-31 07:34] LABS: BASOPHILS % (AUTO) 0.4 % (0.0-2.0); EOSINOPHILS % (AUTO) 4.2 % (0.0-3.0); HEMATOCRIT 35.1 % (42.0-52.0); HEMOGLOBIN 11.7 G/DL (14.2-18.0); LYMPHOCYTES % (AUTO) 31.6 % (20.0-45.0); MEAN CORPUSCULAR VOLUME 88 FL (80-99); MONOCYTES % (AUTO) 7.6 % (1.0-10.0); NEUTROPHILS % (AUTO) 56.2 % (45.0-75.0); PLATELET COUNT 226 K/UL (150-450); RED BLOOD COUNT 3.99 M/UL (4.70-6.10); RED CELL DISTRIBUTION WIDTH 11.4 % (11.6-14.8); WHITE BLOOD COUNT 7.9 K/UL (4.8-10.8)
[2018-12-31 07:53] LABS: ANION GAP 9 mmol/L (5-15); BLOOD UREA NITROGEN 10 mg/dL (7-18); CALCIUM 8.8 MG/DL (8.5-10.1); CARBON DIOXIDE 28 MMOL/L (21-32); CHLORIDE 104 MMOL/L (98-107); CREATININE 1.2 MG/DL (0.55-1.30); POTASSIUM 3.6 MMOL/L (3.5-5.1); SODIUM 141 MMOL/L (136-145)
[2018-12-31 08:00] VITALS: BP 127/67
[2018-12-31] MEDS: Docusate Sod/Senna tab ORAL SCH (08:56)
[2018-12-31] MEDS: Pantoprazole Inj IVP SCH (08:57)
--- NOTE | 2018-12-31 10:34 | GI Progress Note ---
Assessment/Plan Problems: (1) Acute appendicitis ICD Codes: K35.80 - Unspecified acute appendicitis SNOMED: 73587244 Status: stable Status Narrative Discussed the Dr. Arndt Assessment/Plan Status post laparoscopic appendectomy Symptomatic treatment at this time Diet per surgery Pain management Zofran as needed, Reglan for persistent vomiting PPI Follow labs We will be signing out, follow-up surgical recommendations Thank you for allowing us to partake in the care of this patient The patient was seen and examined at bedside and all new and available data was reviewed in the patients chart. I agree with the above findings, impression and plan. (Patient seen earlier today. Signature stamp does not reflect patient encounter time.). - Jorge Arndt MD Subjective Subjective Abdominal pain improved Objective Last 24 Hour Vital Signs Date Time Temp Pulse Resp B/P (MAP) Pulse Ox O2 Delivery O2 Flow Rate FiO2 12/31/18 08:00 98.0 65 18 127/67 (87) 100 12/31/18 04:01 98.0 67 18 119/60 (79) 99 12/30/18 23:56 98.1 72 18 130/69 (89) 97 12/30/18 22:35 98.7 12/30/18 21:00 Room Air 12/30/18 20:00 98.6 65 18 122/70 (87) 96 12/30/18 16:00 98.7 63 19 125/68 (87) 97 12/30/18 12:00 98.5 70 20 124/72 (89) 97 Intake and Output 12/30/18 12/31/18 18:59 06:59 Intake Total 1470 ml 100 ml Balance 1470 ml 100 ml Intake Oral 650 ml IV Total 820 ml 100 ml # Voids 1 2 Laboratory Tests Test 12/31/18 05:35 White Blood Count 7.9 K/UL (4.8-10.8) Red Blood Count 3.99 M/UL (4.70-6.10) L Hemoglobin 11.7 G/DL (14.2-18.0) L Hematocrit 35.1 % (42.0-52.0) L Mean Corpuscular Volume 88 FL (80-99) Mean Corpuscular Hemoglobin 29.4 PG (27.0-31.0) Mean Corpuscular Hemoglobin Concent 33.4 G/DL (32.0-36.0) Red Cell Distribution Width 11.4 % (11.6-14.8) L Platelet Count 226 K/UL (150-450) Mean Platelet Volume 9.1 FL (6.5-10.1) Neutrophils (%) (Auto) 56.2 % (45.0-75.0) Lymphocytes (%) (Auto) 31.6 % (20.0-45.0) Monocytes (%) (Auto) 7.6 % (1.0-10.0) Eosinophils (%) (Auto) 4.2 % (0.0-3.0) H Basophils (%) (Auto) 0.4 % (0.0-2.0) Sodium Level 141 MMOL/L (136-145) Potassium Level 3.6 MMOL/L (3.5-5.1) Chloride Level 104 MMOL/L (98-107) Carbon Dioxide Level 28 MMOL/L (21-32) Anion Gap 9 mmol/L (5-15) Blood Urea Nitrogen 10 mg/dL (7-18) Creatinine 1.2 MG/DL (0.55-1.30) Estimat Glomerular Filtration Rate > 60 mL/min (>60) Glucose Level 86 MG/DL (74-106) Calcium Level 8.8 MG/DL (8.5-10.1) Height (Feet): 6 Height (Inches): 0.00 Weight (Pounds): 214 General Appearance: WD/WN, no apparent distress, alert Cardiovascular: normal rate Respiratory/Chest: normal breath sounds, no respiratory distress Abdominal Exam: normal bowel sounds, non tender, soft Extremities: normal range of motion, non-tender Jyoti Velasco DIRECTOR OF ASSISTED LIVING Dec 31, 2018 10:34
[2018-12-31 12:00] VITALS: BP 140/84
--- NOTE | 2018-12-31 13:56 | Infectious Diseases Prog Note ---
Assessment/Plan Assessment/Plan A: Acute appendicitis, seems to be nonperforated, status post laparoscopic appendectomy. cholelithiasis colonic diverticulosis. RECOMMENDATION: discontinue Zosyn at time of discharge Subjective ROS Limited/Unobtainable: No Constitutional: Reports: no symptoms Respiratory: Reports: no symptoms Cardiovascular: Reports: no symptoms Gastrointestinal/Abdominal: Reports: no symptoms Genitourinary: Reports: no symptoms Allergies: Coded Allergies: No Known Allergies (Unverified , 12/29/18) Objective Vital Signs Last 24 Hour Vital Signs Date Time Temp Pulse Resp B/P (MAP) Pulse Ox O2 Delivery O2 Flow Rate FiO2 12/31/18 08:00 98.0 65 18 127/67 (87) 100 12/31/18 04:01 98.0 67 18 119/60 (79) 99 12/30/18 23:56 98.1 72 18 130/69 (89) 97 12/30/18 22:35 98.7 12/30/18 21:00 Room Air 12/30/18 20:00 98.6 65 18 122/70 (87) 96 12/30/18 16:00 98.7 63 19 125/68 (87) 97 Height (Feet): 6 Height (Inches): 0.00 Weight (Pounds): 214 General Appearance: no acute distress HEENT: mucous membranes moist Respiratory/Chest: lungs clear Cardiovascular: normal rate Abdomen: soft, non tender Extremities: no edema Neurologic/Psychiatric: alert, oriented x 3, responsive Laboratory Tests Test 12/31/18 05:35 White Blood Count 7.9 K/UL (4.8-10.8) Red Blood Count 3.99 M/UL (4.70-6.10) L Hemoglobin 11.7 G/DL (14.2-18.0) L Hematocrit 35.1 % (42.0-52.0) L Mean Corpuscular Volume 88 FL (80-99) Mean Corpuscular Hemoglobin 29.4 PG (27.0-31.0) Mean Corpuscular Hemoglobin Concent 33.4 G/DL (32.0-36.0) Red Cell Distribution Width 11.4 % (11.6-14.8) L Platelet Count 226 K/UL (150-450) Mean Platelet Volume 9.1 FL (6.5-10.1) Neutrophils (%) (Auto) 56.2 % (45.0-75.0) Lymphocytes (%) (Auto) 31.6 % (20.0-45.0) Monocytes (%) (Auto) 7.6 % (1.0-10.0) Eosinophils (%) (Auto) 4.2 % (0.0-3.0) H Basophils (%) (Auto) 0.4 % (0.0-2.0) Sodium Level 141 MMOL/L (136-145) Potassium Level 3.6 MMOL/L (3.5-5.1) Chloride Level 104 MMOL/L (98-107) Carbon Dioxide Level 28 MMOL/L (21-32) Anion Gap 9 mmol/L (5-15) Blood Urea Nitrogen 10 mg/dL (7-18) Creatinine 1.2 MG/DL (0.55-1.30) Estimat Glomerular Filtration Rate > 60 mL/min (>60) Glucose Level 86 MG/DL (74-106) Calcium Level 8.8 MG/DL (8.5-10.1) Current Medications Medications (Trade) Dose Ordered Sig/Stephany Route PRN Reason Start Time Stop Time Status Last Admin Dose Admin Acetaminophen (Tylenol) 650 mg Q6H PRN ORAL Mild Pain/Temp > 100.5 12/30/18 21:45 01/29/19 21:44 12/31/18 08:56 Dextrose/ Electrolytes 1,000 ml @ 100 mls/hr Q10H IV 12/29/18 22:00 01/28/19 21:59 12/31/18 03:47 Hydromorphone HCl (Dilaudid) 0.5 mg Q3H PRN IVP Pain Score 1-3 12/29/18 20:30 01/05/19 20:29 Hydromorphone HCl (Dilaudid) 1 mg Q3H PRN IVP pain score 4-6 12/29/18 20:30 01/05/19 20:29 12/30/18 06:01 Metoclopramide HCl (Reglan) 10 mg Q6H PRN IVP Nausea & Vomiting 12/29/18 20:30 01/28/19 20:29 Ondansetron HCl (Zofran) 4 mg Q6H PRN IVP Nausea & Vomiting 12/29/18 20:30 01/28/19 20:29 Pantoprazole (Protonix) 40 mg DAILY IVP 12/29/18 22:00 01/28/19 21:59 12/31/18 08:57 Piperacillin Sod/ Tazobactam Sod 3.375 gm/Sodium Chloride 110 ml @ 27.5 mls/hr EVERY 8 HOURS IVPB 12/30/18 06:00 01/06/19 05:59 12/31/18 05:33 Senna/Docusate Sodium (Trinity-Colace) 1 tab TWICE A DAY ORAL 12/30/18 18:00 01/29/19 17:59 12/31/18 08:56 Waylon Wise MD Dec 31, 2018 13:56
--- NOTE | 2018-12-31 14:12 | General Surgery Progress Note ---
General Surgery-Progress Note Subjective Symptoms: improved, BM Objective Last 24 Hour Vital Signs Date Time Temp Pulse Resp B/P (MAP) Pulse Ox O2 Delivery O2 Flow Rate FiO2 12/31/18 08:00 98.0 65 18 127/67 (87) 100 12/31/18 04:01 98.0 67 18 119/60 (79) 99 12/30/18 23:56 98.1 72 18 130/69 (89) 97 12/30/18 22:35 98.7 12/30/18 21:00 Room Air 12/30/18 20:00 98.6 65 18 122/70 (87) 96 12/30/18 16:00 98.7 63 19 125/68 (87) 97 I&O Intake and Output 12/30/18 12/31/18 19:00 07:00 Intake Total 1570 ml Balance 1570 ml Intake Oral 650 ml IV Total 920 ml # Voids 1 2 Dressing: dry Respiratory: clear Abdomen: soft, flat, non-tender, absent bowel sounds Extremities: no tenderness Laboratory Tests Test 12/31/18 05:35 White Blood Count 7.9 K/UL (4.8-10.8) Red Blood Count 3.99 M/UL (4.70-6.10) L Hemoglobin 11.7 G/DL (14.2-18.0) L Hematocrit 35.1 % (42.0-52.0) L Mean Corpuscular Volume 88 FL (80-99) Mean Corpuscular Hemoglobin 29.4 PG (27.0-31.0) Mean Corpuscular Hemoglobin Concent 33.4 G/DL (32.0-36.0) Red Cell Distribution Width 11.4 % (11.6-14.8) L Platelet Count 226 K/UL (150-450) Mean Platelet Volume 9.1 FL (6.5-10.1) Neutrophils (%) (Auto) 56.2 % (45.0-75.0) Lymphocytes (%) (Auto) 31.6 % (20.0-45.0) Monocytes (%) (Auto) 7.6 % (1.0-10.0) Eosinophils (%) (Auto) 4.2 % (0.0-3.0) H Basophils (%) (Auto) 0.4 % (0.0-2.0) Sodium Level 141 MMOL/L (136-145) Potassium Level 3.6 MMOL/L (3.5-5.1) Chloride Level 104 MMOL/L (98-107) Carbon Dioxide Level 28 MMOL/L (21-32) Anion Gap 9 mmol/L (5-15) Blood Urea Nitrogen 10 mg/dL (7-18) Creatinine 1.2 MG/DL (0.55-1.30) Estimat Glomerular Filtration Rate > 60 mL/min (>60) Glucose Level 86 MG/DL (74-106) Calcium Level 8.8 MG/DL (8.5-10.1) Assessment Additional Comments S/P lap appy Plan Additional Comments discharge to home Caitlin Russell MD Dec 31, 2018 14:12
--- NOTE | 2018-12-31 14:13 | Discharge Instructions ---
Discharge Instructions Discharge Instructions Follow up with: my office one week Diet: regular Resume Normal Activity?: Yes Activity: as tolerated For Surgical Patients Dressing Care: other - will be removed by surgeon May shower: Yes For Congestive Heart Failure Reminder Report to your physician any weight gain of 5 pounds or more in one week. aCitlin Russell MD Dec 31, 2018 14:13
[2018-12-31 16:00] VITALS: BP 146/73
[2018-12-31] MEDS ORDERED: Tubing IV Secondary IV ONE (17:30)
--- NOTE | 2019-01-01 09:43 | Discharge Summary ---
Discharge Summary Discharge Summary _ DATE OF ADMISSION: 12/29/2018 DATE OF DISCHARGE: 12/31/2018 DISCHARGED BY: Dr. Bhupinder Mcknight CONSULTANTS: Dr. Caitlin Arndt BRIEF HOSPITAL COURSE: Patient is a 28-year-old male, complaining of low abdominal pain. Pain was initially periumbilical and in the lower abdomen. It then localized mainly in the suprapubic area, more towards the right side. He had one episode of vomiting and had normal bowel movement. He denied fever, cough, dysuria or frequency. He had similar episode a week prior which lasted for 2-3 days and eventually resolved. He took Pepto-Bismol at those times. On evaluation at the ED, vital signs were stable. He was afebrile. Blood work did not show any leukocytosis, hemoglobin and hematocrit were stable. Electrolytes were normal. LFTs and lipase were normal. Urinalysis was essentially unremarkable. Urine toxicology screen was positive for marijuana. He had a CT scan of the abdomen and pelvis with contrast that showed findings compatible with early uncomplicated acute appendicitis. He was then admitted. Surgeon was consulted. He was given IV hydration. On 12/29/2018, he underwent laparoscopic appendectomy by Dr. Russell. He was given Zosyn perioperatively. He tolerated procedure well and was transferred to recovery room in stable condition. Procedure was uneventful. Postoperatively, he was given pain management and symptomatic treatment. He was continued on IV antibiotics. Diet was advanced. Abdomen was soft, flat, and nontender. He was tolerating diet well. He was cleared by surgeon for discharge. To follow-up in a week. FINAL DIAGNOSES: Acute appendicitis status post laparoscopic appendectomy DISPOSITION: Patient was discharged home. DISCHARGE MEDICATIONS: Refer to Discharge Medication List. DISCHARGE INSTRUCTIONS: Follow-up with surgeon in a week. I have been assigned to complete a discharge summary on this account, I was not involved with the patient's management. More Fitzgerald NP Jan 01, 2019 09:43
--- NOTE | 2019-01-01 13:26 | Cardiology Report ---
APPROVED REPORT EKG Measurement Heart [id number] AK 172P-4 [id number] Normal sinus rhythm Normal ECG
== END 2018-12-31 17:31 | disposition home or self-care (01) | DRG 234 ==
LOC: EMR 13:15 → 3E 17:20 → EDBEDREQ 17:24
PROC: 0DTJ4ZZ Resection of Appendix, Percutaneous Endoscopic Approach (ICD-10-PCS; principal; 2018-12-29 19:30)
DX: K35.80 Unspecified acute appendicitis (principal); K57.90 Diverticulosis of intestine, part unspecified, without perforation or abscess without bleeding; K80.20 Calculus of gallbladder without cholecystitis without obstruction
CPT/HCPCS: 36415; 74177; 80048; 80053; 80307; 81003; 83690; 85025; 85610; 85730; 93005; 94003; 94150; 96361; 96374; 96375; 99285; C9399; J2250; J2405; J2765